=== PATIENT | female | born 1970 | race Caucasian/White ===

== ENCOUNTER 2019-04-18 13:06 | Emergency (ER) | payer BC, MEDICAID ==
[2019-04-18] MEDS: SOD CHLORIDE 0.9% 1,000 ML IV (16:16)
[2019-04-18] MEDS: SOD CHLORIDE 0.9% 100 ML (16:43)
[2019-04-18] MEDS: IOHEXOL 100 ML (16:44)
[2019-04-18] MEDS: ACETAMINOPHEN 325 MG TAB PO (17:10)
== END 2019-04-18 18:08 | disposition home or self-care (01) ==
LOC: FTE 13:06
DX: M79.604 Pain in right leg (principal)
CPT/HCPCS: 71275; 80053; 81001; 81025; 85025; 85378; 93971; 96360; 96361; 99285-25